=== PATIENT | male | born 1955 | race Caucasian/White ===

== ENCOUNTER → 2022-02-22 | Outpatient (CLI) | payer MEDICARE, SELFPAY ==
--- NOTE | 2022-02-22 11:40 | RAD_ITS ---
PROCEDURE: LUMBAR MYELOGRAM DATE OF EXAMINATION: 02/22/2022. INDICATION: Male, 66 years old. Low back pain. PHYSICIAN: Jag Gonzalez M.D. CONSENT: The patient''s history and physical findings were reviewed. The lumbar myelogram procedure was discussed with the patient prior to signing a consent. SEDATION: Local anesthesia with 3 mL of 1% lidocaine was used. FLUOROSCOPY TIME (if supplied): (0:58) minutes/seconds. 3 images were obtained. Injection Information: 15 cc of ISOVUE-M 200 Number of images obtained: 3 TECHNIQUE: Digital fluoroscopy was used to identify a safe approach for the lumbar myelogram. The back was prepped and draped in usual fashion. Local anesthesia was utilized. Under fluoroscopic guidance a 22-gauge spinal needle was inserted into the spinal canal at the L4-5 level. Clear spinal fluid was seen. 15 mL of Isovue 200 M was injected into the spinal canal. There is good opacification of the spinal fluid. The nerve root sheaths are asymmetrically identified. There is no extradural defects. The patient is status post laminectomy and fusion at the L4-L5 and L5-S1 levels. Multilevel disc space narrowing and spondylosis. RAD/Lumbar Myelogram IMPRESSION: Status post laminectomy and fusion at the L4-L5 and L5-S1 levels. A CT scan will follow. Electronically Signed: Jag Gonzalez MD at 12:51 EDT ,
[2022-02-22 11:48] VITALS: BP 186/78; PULSE 78; RESP 18; TEMP 36.6; O2SAT 100; BMI 21.8
[2022-02-22] MEDS: Lidocaine 2% (5ml sdv) 5 ML VIAL.MPF INFILT (12:15)
[2022-02-22 13:20] VITALS: BP 161/80; BP 186/76; PULSE 75; RESP 18; TEMP 36.6; O2SAT 95
--- NOTE | 2022-02-22 13:25 | CT_ITS ---
STUDY: CT LUMBAR SPINE WITH INTRATHECAL CONTRAST (LUMBAR CT MYELOGRAM) REASON FOR EXAM: Male, 66 years old. LUMBAR RADICULOPATHY RADIATION DOSAGE (If Supplied By Facility): CTDIvol = ( 11.62 ) mGy, DLP = ( 445.23 ) mGycm TECHNIQUE: Transaxial images were obtained from the T12 vertebra through the S1 vertebral level, following intrathecal administration of 15 ml of ISOVUE-M 200 contrast material, performed by Dr. Gonzalez. Please refer to this physicians technical notes for procedural details. Coronal and sagittal reconstructions were obtained. Individualized dose optimization techniques were used for this CT. COMPARISON: None. FINDINGS: There is straightening of the normal lumbar lordosis. There is no substantial scoliosis. Normal vertebrae of the lumbar spine. There is dependent layering of contrast material in the distal thecal sac. The conus medullaris terminates in a normal position at the T12-L1 level. There is no demonstrated cauda equina nerve root abnormality or intraspinal mass. L1-2: Normal endplates. Normal disc height and morphology. Normal bilateral facet joints. Normal central canal and bilateral lateral recesses. Normal bilateral intervertebral neural foramina. L2-3: Normal endplates. Normal disc height and morphology. Normal bilateral facet joints. Normal central canal and bilateral lateral recesses. Normal bilateral intervertebral neural foramina. L3-4: Normal endplates. Normal disc height and morphology. Normal bilateral facet joints. Normal central canal and bilateral lateral recesses. Normal bilateral intervertebral neural foramina. L4-5: Marked degree of disc space narrowing with spondylosis and subchondral sclerosis. The patient is status post interpedicular screw fixation and laminectomy. L5-S1: Moderate degree of disc space narrowing. Status post laminectomy and into the described fixation. Normal visualized sacroiliac joints. Atherosclerotic calcification of the abdominal aorta. CT/Spine Lumbar WITH Contrast IMPRESSION: Status post laminectomy and fusion at the L4-L5 and L5-S1 levels. This space narrowing at the L4-L5 and L5-S1 levels. No evidence of stenosis. Electronically Signed: Jag Gonzalez MD at 13:42 EDT ,
== END | disposition home or self-care (01) ==
PROVIDERS: PCP Nurse Practitioner Family; Referring Provider Nurse Practitioner Family; Visit Provider Nurse Practitioner Family
DX: M46.96 Unspecified inflammatory spondylopathy, lumbar region (principal); M51.37 Other intervertebral disc degeneration, lumbosacral region; M96.1 Postlaminectomy syndrome, not elsewhere classified; M54.17 Radiculopathy, lumbosacral region; M47.817 Spondylosis without myelopathy or radiculopathy, lumbosacral region; M48.07 Spinal stenosis, lumbosacral region
CPT/HCPCS: 62304; 72132; Q9965